=== PATIENT | male | born 1970 | race Caucasian/White ===

== ENCOUNTER 2023-02-05 14:58 | Inpatient (IN) | payer OTHER ==
[~2023-02-05] VITALS: Ht 177.8 cm; Wt 100.7 kg
[~2023-02-05 14:58] MED LIST: PIPERACILLIN /TAZOBACTAM 3.375 G in IV D5W 50 ML IV SCH
[2023-02-05] MEDS ORDERED: IV NS 0.9% 1,000 ML BAG IV ONE (15:30)
[2023-02-05 15:52] LABS: BASOPHILS # (AUTO) 0.1 K/uL (0.0-0.2); BASOPHILS % (AUTO) 0.3 % (0.0-2.0); EOSINOPHILS # (AUTO) 0.1 K/uL (0.0-0.7); EOSINOPHILS % (AUTO) 0.8 % (0.0-6.0); HEMATOCRIT 36 % (39-51); HEMOGLOBIN 11.7 g/dL (13.5-17.5); LYMPHOCYTES # (AUTO) 1.4 K/uL (0.8-4.8); LYMPHOCYTES % (AUTO) 7.8 % (20.0-44.0); MEAN CORPUSCULAR HEMOGLOBIN 27 PG (26.0-33.0); MEAN CORPUSCULAR HGB CONC 32 g/dl (31.0-36.0); MEAN CORPUSCULAR VOLUME 83 fL (80-96); MONOCYTES # (AUTO) 0.8 K/uL (0.1-1.30); MONOCYTES % (AUTO) 4.4 % (2.0-12.0); NEUTROPHILS # (AUTO) 15.1 K/uL (1.8-8.9); NEUTROPHILS % (AUTO) 86.7 % (43.0-81.0); PLATELET COUNT (AUTO) 396 K/uL (150-450); RED CELL DISTRIBUTION WIDTH 15.9 % (11.5-15.0); WHITE BLOOD COUNT (AUTO) 17.4 K/uL (4.3-11.0)
[2023-02-05 16:02] LABS: CALCIUM, SERUM 8.9 mg/dL (8.5-10.1); CARBON DIOXIDE 26 mmol/L (21-32); CHLORIDE 110 mmol/L (98-107); CREATININE 0.7 mg/dL (0.6-1.3); GLUCOSE 122 mg/dL (74-106); POTASSIUM 3.8 mmol/L (3.5-5.1); SODIUM SERUM 143 mmol/L (136-145); UREA NITROGEN, BLOOD 24 mg/dL (7-18)
[2023-02-05 16:06] LABS: INR 1.08 (0.91-1.10); PARTIAL THROMBOPLASTIN TIME 29.9 SEC (24.3-34.3); PROTHROMBIN TIME 11.4 SECS (9.2-11.1)
[2023-02-05 16:07] LABS: ALANINE AMINOTRANSFERASE 104 U/L (12-78); ALKALINE PHOSPHATASE 148 U/L (46-116); ASPARTATE AMINOTRANSFERASE 38 U/L (15-37); BILIRUBIN,DIRECT 0.1 mg/dL (0.0-0.2); BILIRUBIN,TOTAL 0.3 mg/dL (0.2-1.0); TOTAL PROTEIN, SERUM 7.8 g/dL (6.4-8.2)
[2023-02-05] MEDS ORDERED: SERT25TA GT (16:13)
[2023-02-05] MEDS ORDERED: IPRA4AER IH ×2 (16:13)
[2023-02-05] MEDS ORDERED: BACL10TA GT (16:13)
[2023-02-05] MEDS ORDERED: ASCO-352 GT (16:13)
[2023-02-05] MEDS ORDERED: RISP0.2515 GT (16:13)
[2023-02-05] MEDS ORDERED: AMLO-213 GT (16:13)
[2023-02-05] MEDS ORDERED: HYDR-4077 GT (16:13)
[2023-02-05] MEDS ORDERED: ALPR1TAB7 GT (16:13)
[2023-02-05] MEDS ORDERED: FAMO20TA8 GT (16:13)
[2023-02-05] MEDS ORDERED: ACET-2605 GT (16:13)
[2023-02-05] MEDS ORDERED: ACET-868 GT (16:13)
[2023-02-05] MEDS ORDERED: LEVE100S GT (16:13)
[2023-02-05] MEDS ORDERED: LACT-209 GT (16:13)
[2023-02-05] MEDS ORDERED: POVI3780 TP (16:13)
[2023-02-05] MEDS ORDERED: CLON0.1T GT (16:13)
[2023-02-05] MEDS ORDERED: DOCU50LI GT (16:13)
[2023-02-05] MEDS ORDERED: ONDA4TAB5 GT (16:13)
[2023-02-05] MEDS ORDERED: CHLO473M5 MM (16:13)
[2023-02-05] MEDS ORDERED: VANCOMYCIN 1 GM in IV D5W 250 ML IV ONE (16:30)
[2023-02-05] MEDS ORDERED: PIPERACILLIN /TAZOBACTAM 3.375 G in IV D5W 50 ML IV ONE (16:30)
[2023-02-05 16:44] LABS: APPEARANCE,URINE CLEAR (CLEAR); BILIRUBIN,URINE NEGATIVE (NEGATIVE); BLOOD, URINE NEGATIVE Ery/uL (NEGATIVE); COLOR,URINE YELLOW (YELLOW); KETONES,URINE NEGATIVE (NEGATIVE); LEUKOCYTE ESTERASE ,URINE NEGATIVE (NEGATIVE); NITRITE, URINE NEGATIVE (NEGATIVE); PH,URINE 5.5 (5.0-8.0); PROTEIN,URINE TRACE mg/dl (NEGATIVE); UGLUCOSE NEGATIVE (NEGATIVE)
[2023-02-05] MEDS ORDERED: VANCOMYCIN 1 GM /D5W 250 ML PB IV ONE (16:45)
[2023-02-05] MEDS ORDERED: PIPERACI/TAZO 3.375GM/D5W 50ML PB IV ONE (16:45)
[2023-02-05 17:12] LABS: ADD URINE CULTURE NO; BACTERIA,URINE Few /HPF (None Seen); RBC,URINE NONE SEEN /HPF (0-2); SQUAMOUS EPITHELIAL CELL,UR None Seen /HPF (None Seen); WBC,URINE NONE SEEN /HPF (0-3)
[2023-02-05 17:13] LABS: MUCUS,URINE Few /LPF (None Seen)
[2023-02-05] MEDS ORDERED: ONDANSETRON HCL/PF 4 MG/2 ML VIAL IVP PRN (17:30)
[2023-02-05] MEDS ORDERED: hydrALAZINE HCL 50 MG TABLET GT PRN (17:30)
[2023-02-05] MEDS ORDERED: ALPRAZOLAM 1 MG TABLET GT PRN (17:30)
[2023-02-05] MEDS ORDERED: ACETAMINOPHEN ES 500 MG TABLET GT PRN (17:30)
[2023-02-05] MEDS ORDERED: ACETAMINOPHEN 650 MG/SUPP.RECT RC PRN (17:30)
[2023-02-05] MEDS ORDERED: MAGNESIUM HYDROXIDE 30 ML UDC GT PRN (17:30)
[2023-02-05] MEDS ORDERED: JEVITY 1.2 CAL 1,000 ML BOTTLE GT SCH (17:30)
[2023-02-05] MEDS ORDERED: Z GUARD REMEDY 4 OZ OINT TP PRN (17:30)
[2023-02-05] MEDS ORDERED: CLONIDINE HCL 0.1 MG TABLET GT PRN (17:30)
[2023-02-05] MEDS ORDERED: IPRATROPIUM NEB FS 0.5 MG/2.5 ML AMPUL.NEB NEB PRN (17:30)
[2023-02-05] MEDS ORDERED: ALBUTEROL FS 2.5 MG/3 ML VIAL.NEB NEB PRN (17:30)
[2023-02-05] MEDS: IV NS 0.9% 1,000 ML IV PRN (21:09)
[2023-02-05] MEDS: PANTOPRAZOLE 40 MG VIAL IV SCH (23:04)
[2023-02-05] MEDS: CHLORHEXIDINE GLUCONATE 15 ML UDC MM SCH (23:04)
[2023-02-05] MEDS: BACLOFEN (10 MG) 10 MG TABLET GT SCH (23:04)
[2023-02-06] VITALS: BP 120/93; TEMP 99.2; O2SAT 93
[2023-02-06] MEDS ORDERED: PIPERACILLIN /TAZOBACTAM 3.375 G in IV D5W 50 ML IV SCH ×2 (01:00→13:00)
[2023-02-06] MEDS ORDERED: PIPERACI/TAZO 3.375GM/D5W 50ML PB IV ONE (01:15)
[2023-02-06] MEDS ORDERED: VANCOMYCIN 1 GM /D5W 250 ML PB IV ONE (04:22)
[2023-02-06] MEDS ORDERED: VANCOMYCIN HCL 0.75 GM in IV D5W 250 ML IV ONE (05:00)
[2023-02-06 06:36] LABS: BASOPHILS % (AUTO) 0.2 % (0.0-2.0); EOSINOPHILS # (AUTO) 0.3 K/uL (0.0-0.7); EOSINOPHILS % (AUTO) 2.4 % (0.0-6.0); HEMATOCRIT 36 % (39-51); HEMOGLOBIN 11.6 g/dL (13.5-17.5); LYMPHOCYTES # (AUTO) 1.2 K/uL (0.8-4.8); LYMPHOCYTES % (AUTO) 9.8 % (20.0-44.0); MEAN CORPUSCULAR HEMOGLOBIN 27 PG (26.0-33.0); MEAN CORPUSCULAR HGB CONC 32 g/dl (31.0-36.0); MEAN CORPUSCULAR VOLUME 83 fL (80-96); MONOCYTES # (AUTO) 0.6 K/uL (0.1-1.30); MONOCYTES % (AUTO) 4.7 % (2.0-12.0); NEUTROPHILS # (AUTO) 10.4 K/uL (1.8-8.9); NEUTROPHILS % (AUTO) 82.9 % (43.0-81.0); PLATELET COUNT (AUTO) 388 K/uL (150-450); RED BLOOD CELL COUNT(AUTO) 4.35 MIL/uL (4.5-6.0); RED CELL DISTRIBUTION WIDTH 15.9 % (11.5-15.0); WHITE BLOOD COUNT (AUTO) 12.5 K/uL (4.3-11.0)
[2023-02-06 06:55] LABS: CALCIUM, SERUM 8.9 mg/dL (8.5-10.1); CREATININE 0.7 mg/dL (0.6-1.3); MAGNESIUM 2.3 mg/dL (1.8-2.4); PHOSPHORUS 3.3 mg/dL (2.5-4.9); POTASSIUM 3.5 mmol/L (3.5-5.1)
[2023-02-06 07:32] LABS: THYROID STIMULATING HORMONE 2.918 uIU/mL (0.358-3.74)
[2023-02-06 08:00] VITALS: BP 123/82; TEMP 99.9; O2SAT 99
[2023-02-06] MEDS: CHLORHEXIDINE GLUCONATE 15 ML UDC MM SCH ×2 (08:49→21:40)
[2023-02-06] MEDS: BACLOFEN (10 MG) 10 MG TABLET GT SCH ×2 (08:49→20:34)
[2023-02-06] MEDS: LEVETIRACETAM SOL (5 ML) 100 MG/ML UDC GT SCH ×2 (08:49→16:28)
[2023-02-06] MEDS: ASCORBIC ACID 500 MG TABLET GT SCH (08:49)
[2023-02-06] MEDS: PANTOPRAZOLE 40 MG VIAL IV SCH (08:49)
[2023-02-06] MEDS: DOCUSATE SODIUM LIQ 100 MG/10 ML UDC GT SCH (08:49)
[2023-02-06] MEDS: AMLODIPINE BESYLATE 10 MG TABLET GT SCH (08:50)
[2023-02-06] MEDS: SERTRALINE HCL 25 MG TABLET GT SCH (08:50)
[2023-02-06] MEDS: risperiDONE 1 MG TABLET GT SCH ×2 (08:50→16:28)
[2023-02-06] MEDS: PIPERACILLIN /TAZOBACTAM 3.375 G in IV D5W 50 ML IV SCH ×2 (11:11→20:18)
[2023-02-06] MEDS ORDERED: JEVITY 1.2 CAL 1,000 ML BOTTLE GT SCH ×2 (11:30)
[2023-02-06 12:00] VITALS: BP 115/81; TEMP 99.3; O2SAT 99
[2023-02-06] MEDS: VANCOMYCIN 0.75 GM in IV D5W 250 ML IV SCH ×2 (13:09→20:19)
[2023-02-06 16:00] VITALS: BP 118/84; TEMP 98.4; O2SAT 100
[2023-02-06 20:00] VITALS: BP 114/89; TEMP 98.9; O2SAT 97
[2023-02-06] MEDS: JEVITY 1.2 CAL 1,000 ML BOTTLE GT PRN (20:31)
[2023-02-07] VITALS: BP 145/111; TEMP 98.5; O2SAT 100
[2023-02-07] MEDS: IV NS 0.9% 1,000 ML IV PRN ×2 (02:35→22:52)
[2023-02-07] MEDS: PIPERACILLIN /TAZOBACTAM 3.375 G in IV D5W 50 ML IV SCH ×3 (04:14→20:56)
[2023-02-07] MEDS: VANCOMYCIN 0.75 GM in IV D5W 250 ML IV SCH ×3 (05:18→21:57)
[2023-02-07 07:01] LABS: BASOPHILS % (AUTO) 0.2 % (0.0-2.0); EOSINOPHILS # (AUTO) 0.5 K/uL (0.0-0.7); EOSINOPHILS % (AUTO) 4.3 % (0.0-6.0); HEMATOCRIT 36 % (39-51); HEMOGLOBIN 11.3 g/dL (13.5-17.5); LYMPHOCYTES # (AUTO) 1.3 K/uL (0.8-4.8); LYMPHOCYTES % (AUTO) 11.1 % (20.0-44.0); MEAN CORPUSCULAR HEMOGLOBIN 26 PG (26.0-33.0); MEAN CORPUSCULAR HGB CONC 31 g/dl (31.0-36.0); MEAN CORPUSCULAR VOLUME 84 fL (80-96); MONOCYTES # (AUTO) 0.7 K/uL (0.1-1.30); MONOCYTES % (AUTO) 5.9 % (2.0-12.0); NEUTROPHILS # (AUTO) 9.2 K/uL (1.8-8.9); NEUTROPHILS % (AUTO) 78.5 % (43.0-81.0); PLATELET COUNT (AUTO) 403 K/uL (150-450); RED BLOOD CELL COUNT(AUTO) 4.31 MIL/uL (4.5-6.0); WHITE BLOOD COUNT (AUTO) 11.7 K/uL (4.3-11.0)
[2023-02-07 07:18] LABS: CALCIUM, SERUM 8.5 mg/dL (8.5-10.1); CREATININE 0.7 mg/dL (0.6-1.3); POTASSIUM 3.6 mmol/L (3.5-5.1)
[2023-02-07 07:30] VITALS: BP 124/90; TEMP 98.8; O2SAT 100
[2023-02-07] MEDS: CHLORHEXIDINE GLUCONATE 15 ML UDC MM SCH ×2 (09:00→21:04)
[2023-02-07] MEDS: LEVETIRACETAM SOL (5 ML) 100 MG/ML UDC GT SCH ×2 (09:00→16:16)
[2023-02-07] MEDS: BACLOFEN (10 MG) 10 MG TABLET GT SCH ×2 (09:00→21:03)
[2023-02-07] MEDS: DOCUSATE SODIUM LIQ 100 MG/10 ML UDC GT SCH (09:00)
[2023-02-07] MEDS: AMLODIPINE BESYLATE 10 MG TABLET GT SCH (09:01)
[2023-02-07] MEDS: risperiDONE 1 MG TABLET GT SCH ×2 (09:01→16:16)
[2023-02-07] MEDS: PANTOPRAZOLE 40 MG/PACK PACK NG SCH (09:01)
[2023-02-07] MEDS: ASCORBIC ACID 500 MG TABLET GT SCH (09:01)
[2023-02-07] MEDS: SERTRALINE HCL 25 MG TABLET GT SCH (09:01)
[2023-02-07] MEDS: MUPIROCIN OINT 2% 22 GM TUBE TP SCH (13:34)
[2023-02-07 16:00] VITALS: BP 130/90; TEMP 100.6; O2SAT 97
[2023-02-07] MEDS: ACETAMINOPHEN 325 MG TABLET MC PRN (16:16)
[2023-02-07] MEDS: JEVITY 1.2 CAL 1,000 ML BOTTLE GT PRN (16:45)
[2023-02-07 20:37] VITALS: TEMP 98.4
[2023-02-07 20:38] VITALS: BP 117/86; O2SAT 98
[2023-02-08 00:11] VITALS: BP 113/86; TEMP 98.2; O2SAT 97
[2023-02-08] MEDS: PIPERACILLIN /TAZOBACTAM 3.375 G in IV D5W 50 ML IV SCH ×3 (04:00→20:39)
[2023-02-08] MEDS: VANCOMYCIN 0.75 GM in IV D5W 250 ML IV SCH ×3 (04:31→21:46)
[2023-02-08] MEDS: ACETAMINOPHEN 325 MG TABLET MC PRN (04:51)
[2023-02-08 05:27] VITALS: BP 103/76; TEMP 97.9; O2SAT 97
[2023-02-08 07:30] VITALS: BP 125/92; TEMP 99.9; O2SAT 99
[2023-02-08 07:33] LABS: BASOPHILS % (AUTO) 0.1 % (0.0-2.0); EOSINOPHILS # (AUTO) 0.4 K/uL (0.0-0.7); EOSINOPHILS % (AUTO) 3.3 % (0.0-6.0); HEMATOCRIT 36 % (39-51); HEMOGLOBIN 11.6 g/dL (13.5-17.5); LYMPHOCYTES # (AUTO) 1.1 K/uL (0.8-4.8); LYMPHOCYTES % (AUTO) 9.3 % (20.0-44.0); MEAN CORPUSCULAR HEMOGLOBIN 27 PG (26.0-33.0); MEAN CORPUSCULAR HGB CONC 32 g/dl (31.0-36.0); MEAN CORPUSCULAR VOLUME 83 fL (80-96); MONOCYTES # (AUTO) 0.6 K/uL (0.1-1.30); MONOCYTES % (AUTO) 4.6 % (2.0-12.0); NEUTROPHILS % (AUTO) 82.7 % (43.0-81.0); PLATELET COUNT (AUTO) 438 K/uL (150-450); RED BLOOD CELL COUNT(AUTO) 4.35 MIL/uL (4.5-6.0); WHITE BLOOD COUNT (AUTO) 12.1 K/uL (4.3-11.0)
[2023-02-08 07:58] LABS: CREATININE 0.7 mg/dL (0.6-1.3); POTASSIUM 3.4 mmol/L (3.5-5.1)
[2023-02-08] MEDS: risperiDONE 1 MG TABLET GT SCH ×2 (09:56→16:51)
[2023-02-08] MEDS: AMLODIPINE BESYLATE 10 MG TABLET GT SCH (09:56)
[2023-02-08] MEDS: PANTOPRAZOLE 40 MG/PACK PACK NG SCH (09:56)
[2023-02-08] MEDS: SERTRALINE HCL 25 MG TABLET GT SCH (09:56)
[2023-02-08] MEDS: BACLOFEN (10 MG) 10 MG TABLET GT SCH ×2 (09:56→21:47)
[2023-02-08] MEDS: DOCUSATE SODIUM LIQ 100 MG/10 ML UDC GT SCH (09:56)
[2023-02-08] MEDS: LEVETIRACETAM SOL (5 ML) 100 MG/ML UDC GT SCH ×2 (09:56→16:51)
[2023-02-08] MEDS: ASCORBIC ACID 500 MG TABLET GT SCH (09:56)
[2023-02-08] MEDS: MUPIROCIN OINT 2% 22 GM TUBE TP SCH (09:57)
[2023-02-08] MEDS: CHLORHEXIDINE GLUCONATE 15 ML UDC MM SCH ×2 (09:58→21:47)
[2023-02-08] MEDS ORDERED: POTASSIUM CHLORIDE 20 MEQ TAB.PRT.SR PO ONE (10:00)
[2023-02-08 10:15] LABS: CALCIUM, SERUM 8.9 mg/dL (8.5-10.1)
[2023-02-08] MEDS: JEVITY 1.2 CAL 1,000 ML BOTTLE GT PRN (12:57)
[2023-02-08 16:00] VITALS: BP 129/95; TEMP 99.3; O2SAT 97
[2023-02-08] MEDS: IV NS 0.9% 1,000 ML IV PRN (18:16)
[2023-02-08 20:00] VITALS: BP 133/110; TEMP 99.3; O2SAT 99
[2023-02-09] MEDS: PIPERACILLIN /TAZOBACTAM 3.375 G in IV D5W 50 ML IV SCH (04:20)
[2023-02-09] MEDS: VANCOMYCIN 0.75 GM in IV D5W 250 ML IV SCH ×3 (05:00→20:49)
[2023-02-09] MEDS: JEVITY 1.2 CAL 1,000 ML BOTTLE GT PRN (06:41)
[2023-02-09 07:11] LABS: BASOPHILS % (AUTO) 0.2 % (0.0-2.0); EOSINOPHILS # (AUTO) 0.2 K/uL (0.0-0.7); EOSINOPHILS % (AUTO) 1.2 % (0.0-6.0); HEMATOCRIT 37 % (39-51); HEMOGLOBIN 11.6 g/dL (13.5-17.5); LYMPHOCYTES # (AUTO) 1.3 K/uL (0.8-4.8); LYMPHOCYTES % (AUTO) 9.3 % (20.0-44.0); MEAN CORPUSCULAR HEMOGLOBIN 26 PG (26.0-33.0); MEAN CORPUSCULAR HGB CONC 31 g/dl (31.0-36.0); MEAN CORPUSCULAR VOLUME 84 fL (80-96); MONOCYTES # (AUTO) 0.8 K/uL (0.1-1.30); MONOCYTES % (AUTO) 5.8 % (2.0-12.0); NEUTROPHILS # (AUTO) 11.4 K/uL (1.8-8.9); NEUTROPHILS % (AUTO) 83.5 % (43.0-81.0); PLATELET COUNT (AUTO) 480 K/uL (150-450); RED BLOOD CELL COUNT(AUTO) 4.39 MIL/uL (4.5-6.0); RED CELL DISTRIBUTION WIDTH 16.2 % (11.5-15.0); WHITE BLOOD COUNT (AUTO) 13.7 K/uL (4.3-11.0)
[2023-02-09 07:16] LABS: CALCIUM, SERUM 9.1 mg/dL (8.5-10.1); CREATININE 0.8 mg/dL (0.6-1.3); POTASSIUM 3.8 mmol/L (3.5-5.1)
[2023-02-09] MEDS: ASCORBIC ACID 500 MG TABLET GT SCH (08:37)
[2023-02-09] MEDS: LEVETIRACETAM SOL (5 ML) 100 MG/ML UDC GT SCH ×2 (08:37→16:39)
[2023-02-09] MEDS: CHLORHEXIDINE GLUCONATE 15 ML UDC MM SCH ×2 (08:37→20:40)
[2023-02-09] MEDS: BACLOFEN (10 MG) 10 MG TABLET GT SCH ×2 (08:37→20:40)
[2023-02-09] MEDS: AMLODIPINE BESYLATE 10 MG TABLET GT SCH (08:38)
[2023-02-09] MEDS: DOCUSATE SODIUM LIQ 100 MG/10 ML UDC GT SCH (08:38)
[2023-02-09] MEDS: PANTOPRAZOLE 40 MG/PACK PACK NG SCH (08:38)
[2023-02-09] MEDS: risperiDONE 1 MG TABLET GT SCH ×2 (08:48→16:39)
[2023-02-09] MEDS: SERTRALINE HCL 25 MG TABLET GT SCH (08:48)
[2023-02-09 09:03] VITALS: BP 131/99; TEMP 98.8; O2SAT 99
[2023-02-09] MEDS: MUPIROCIN OINT 2% 22 GM TUBE TP SCH (09:11)
[2023-02-09] MEDS: PIPERACILLIN /TAZOBACTAM 3.375 G in IV D5W 100 ML IV SCH ×2 (13:18→22:01)
[2023-02-09 13:38] VITALS: BP 122/82; TEMP 100.8; O2SAT 100
[2023-02-09 16:44] VITALS: BP 98/87; TEMP 99.3; O2SAT 98
[2023-02-09 20:00] VITALS: BP 123/98; TEMP 98.3; O2SAT 98
[2023-02-09] MEDS: IV NS 0.9% 1,000 ML IV PRN (20:50)
[2023-02-10] VITALS: BP 129/83; TEMP 99.4; O2SAT 99
[2023-02-10] MEDS: JEVITY 1.2 CAL 1,000 ML BOTTLE GT PRN ×2 (01:37→16:51)
[2023-02-10] MEDS: VANCOMYCIN 0.75 GM in IV D5W 250 ML IV SCH (04:15)
[2023-02-10] MEDS: PIPERACILLIN /TAZOBACTAM 3.375 G in IV D5W 100 ML IV SCH ×3 (05:16→20:47)
[2023-02-10 07:00] VITALS: BP 117/83; TEMP 100.1; O2SAT 98
[2023-02-10 07:19] LABS: BASOPHILS % (AUTO) 0.1 % (0.0-2.0); EOSINOPHILS # (AUTO) 0.3 K/uL (0.0-0.7); EOSINOPHILS % (AUTO) 1.8 % (0.0-6.0); HEMATOCRIT 35 % (39-51); HEMOGLOBIN 11.1 g/dL (13.5-17.5); LYMPHOCYTES # (AUTO) 1.6 K/uL (0.8-4.8); LYMPHOCYTES % (AUTO) 9.8 % (20.0-44.0); MEAN CORPUSCULAR HEMOGLOBIN 27 PG (26.0-33.0); MEAN CORPUSCULAR HGB CONC 32 g/dl (31.0-36.0); MEAN CORPUSCULAR VOLUME 84 fL (80-96); MONOCYTES % (AUTO) 6.4 % (2.0-12.0); NEUTROPHILS # (AUTO) 13.2 K/uL (1.8-8.9); NEUTROPHILS % (AUTO) 81.9 % (43.0-81.0); PLATELET COUNT (AUTO) 435 K/uL (150-450); RED BLOOD CELL COUNT(AUTO) 4.19 MIL/uL (4.5-6.0); RED CELL DISTRIBUTION WIDTH 16.1 % (11.5-15.0); WHITE BLOOD COUNT (AUTO) 16.2 K/uL (4.3-11.0)
[2023-02-10 07:33] LABS: CALCIUM, SERUM 8.8 mg/dL (8.5-10.1); CREATININE 0.8 mg/dL (0.6-1.3); POTASSIUM 3.6 mmol/L (3.5-5.1)
[2023-02-10] MEDS: ASCORBIC ACID 500 MG TABLET GT SCH (08:43)
[2023-02-10] MEDS: BACLOFEN (10 MG) 10 MG TABLET GT SCH ×2 (08:43→21:15)
[2023-02-10] MEDS: risperiDONE 1 MG TABLET GT SCH ×2 (08:43→16:51)
[2023-02-10] MEDS: AMLODIPINE BESYLATE 10 MG TABLET GT SCH (08:44)
[2023-02-10] MEDS: PANTOPRAZOLE 40 MG/PACK PACK NG SCH (08:44)
[2023-02-10] MEDS: LEVETIRACETAM SOL (5 ML) 100 MG/ML UDC GT SCH ×2 (08:45→16:51)
[2023-02-10] MEDS: DOCUSATE SODIUM LIQ 100 MG/10 ML UDC GT SCH (08:45)
[2023-02-10] MEDS: SERTRALINE HCL 25 MG TABLET GT SCH (08:45)
[2023-02-10] MEDS: CHLORHEXIDINE GLUCONATE 15 ML UDC MM SCH ×2 (08:45→21:14)
[2023-02-10] MEDS: MUPIROCIN OINT 2% 22 GM TUBE TP SCH (08:46)
[2023-02-10 12:00] VITALS: BP 104/76; TEMP 99.3; O2SAT 98
[2023-02-10] MEDS: VANCOMYCIN 1 GM in IV D5W 250 ML IV SCH ×2 (12:29→20:47)
[2023-02-10 16:00] VITALS: BP 115/91; TEMP 99.4; O2SAT 99
[2023-02-10 20:00] VITALS: BP 128/86; TEMP 98.4; O2SAT 100
[2023-02-11 00:06] VITALS: BP 121/88; TEMP 98.4; O2SAT 100
[2023-02-11] MEDS: PIPERACILLIN /TAZOBACTAM 3.375 G in IV D5W 100 ML IV SCH ×3 (04:08→22:18)
[2023-02-11] MEDS: VANCOMYCIN 1 GM in IV D5W 250 ML IV SCH ×4 (04:08→21:14)
[2023-02-11 04:17] VITALS: BP 117/78; TEMP 95.2; O2SAT 100
[2023-02-11] MEDS: IV NS 0.9% 1,000 ML IV PRN (04:45)
[2023-02-11 07:00] VITALS: BP 103/71; TEMP 97.9; O2SAT 100
[2023-02-11 08:01] LABS: BASOPHILS % (AUTO) 0.2 % (0.0-2.0); EOSINOPHILS # (AUTO) 0.5 K/uL (0.0-0.7); EOSINOPHILS % (AUTO) 3.6 % (0.0-6.0); HEMATOCRIT 33 % (39-51); HEMOGLOBIN 10.5 g/dL (13.5-17.5); LYMPHOCYTES # (AUTO) 1.8 K/uL (0.8-4.8); LYMPHOCYTES % (AUTO) 13.7 % (20.0-44.0); MEAN CORPUSCULAR HEMOGLOBIN 26 PG (26.0-33.0); MEAN CORPUSCULAR HGB CONC 32 g/dl (31.0-36.0); MEAN CORPUSCULAR VOLUME 82 fL (80-96); MONOCYTES # (AUTO) 0.8 K/uL (0.1-1.30); MONOCYTES % (AUTO) 6.3 % (2.0-12.0); NEUTROPHILS # (AUTO) 10.1 K/uL (1.8-8.9); NEUTROPHILS % (AUTO) 76.2 % (43.0-81.0); PLATELET COUNT (AUTO) 457 K/uL (150-450); RED BLOOD CELL COUNT(AUTO) 3.97 MIL/uL (4.5-6.0); RED CELL DISTRIBUTION WIDTH 15.9 % (11.5-15.0); WHITE BLOOD COUNT (AUTO) 13.2 K/uL (4.3-11.0)
[2023-02-11 08:41] LABS: CALCIUM, SERUM 8.7 mg/dL (8.5-10.1); CREATININE 0.7 mg/dL (0.6-1.3); POTASSIUM 3.5 mmol/L (3.5-5.1)
[2023-02-11] MEDS: BACLOFEN (10 MG) 10 MG TABLET GT SCH ×2 (08:48→21:14)
[2023-02-11] MEDS: LEVETIRACETAM SOL (5 ML) 100 MG/ML UDC GT SCH ×2 (08:48→16:05)
[2023-02-11] MEDS: ASCORBIC ACID 500 MG TABLET GT SCH (08:48)
[2023-02-11] MEDS: DOCUSATE SODIUM LIQ 100 MG/10 ML UDC GT SCH (08:48)
[2023-02-11] MEDS: CHLORHEXIDINE GLUCONATE 15 ML UDC MM SCH ×2 (08:48→21:14)
[2023-02-11] MEDS: SERTRALINE HCL 25 MG TABLET GT SCH (08:48)
[2023-02-11] MEDS: risperiDONE 1 MG TABLET GT SCH ×2 (08:48→16:05)
[2023-02-11] MEDS: PANTOPRAZOLE 40 MG/PACK PACK NG SCH (08:49)
[2023-02-11] MEDS: AMLODIPINE BESYLATE 10 MG TABLET GT SCH (09:00)
[2023-02-11] MEDS: MUPIROCIN OINT 2% 22 GM TUBE TP SCH (09:03)
[2023-02-11 11:30] VITALS: BP 103/81; TEMP 98.4; O2SAT 99
[2023-02-11 16:00] VITALS: BP 111/83; TEMP 97.3; O2SAT 99
[2023-02-11] MEDS: JEVITY 1.2 CAL 1,000 ML BOTTLE GT PRN (18:10)
[2023-02-11 20:00] VITALS: BP 105/81; TEMP 97.9; O2SAT 100
[2023-02-12] VITALS: BP 113/83; TEMP 97.8; O2SAT 97
[2023-02-12] MEDS: VANCOMYCIN 1 GM in IV D5W 250 ML IV SCH (04:08)
[2023-02-12] MEDS: PIPERACILLIN /TAZOBACTAM 3.375 G in IV D5W 100 ML IV SCH ×2 (04:17→13:34)
[2023-02-12 04:51] VITALS: BP 111/72; TEMP 98.4; O2SAT 100
[2023-02-12 07:00] VITALS: BP 104/77; TEMP 99; O2SAT 100
[2023-02-12 07:39] LABS: BASOPHILS % (AUTO) 0.2 % (0.0-2.0); EOSINOPHILS # (AUTO) 0.5 K/uL (0.0-0.7); EOSINOPHILS % (AUTO) 4.9 % (0.0-6.0); HEMATOCRIT 32 % (39-51); HEMOGLOBIN 10.1 g/dL (13.5-17.5); LYMPHOCYTES # (AUTO) 1.6 K/uL (0.8-4.8); LYMPHOCYTES % (AUTO) 16.3 % (20.0-44.0); MEAN CORPUSCULAR HEMOGLOBIN 26 PG (26.0-33.0); MEAN CORPUSCULAR HGB CONC 32 g/dl (31.0-36.0); MEAN CORPUSCULAR VOLUME 82 fL (80-96); MONOCYTES # (AUTO) 0.6 K/uL (0.1-1.30); MONOCYTES % (AUTO) 6.3 % (2.0-12.0); NEUTROPHILS # (AUTO) 7.2 K/uL (1.8-8.9); NEUTROPHILS % (AUTO) 72.3 % (43.0-81.0); PLATELET COUNT (AUTO) 499 K/uL (150-450); RED BLOOD CELL COUNT(AUTO) 3.85 MIL/uL (4.5-6.0); RED CELL DISTRIBUTION WIDTH 15.6 % (11.5-15.0); WHITE BLOOD COUNT (AUTO) 9.9 K/uL (4.3-11.0)
[2023-02-12 08:19] LABS: CALCIUM, SERUM 9.2 mg/dL (8.5-10.1); CREATININE 0.8 mg/dL (0.6-1.3); MAGNESIUM 2.3 mg/dL (1.8-2.4); PHOSPHORUS 4.7 mg/dL (2.5-4.9); POTASSIUM 3.5 mmol/L (3.5-5.1)
[2023-02-12] MEDS: BACLOFEN (10 MG) 10 MG TABLET GT SCH (08:40)
[2023-02-12] MEDS: SERTRALINE HCL 25 MG TABLET GT SCH (08:41)
[2023-02-12] MEDS: AMLODIPINE BESYLATE 10 MG TABLET GT SCH (08:41)
[2023-02-12] MEDS: CHLORHEXIDINE GLUCONATE 15 ML UDC MM SCH (08:42)
[2023-02-12] MEDS: ASCORBIC ACID 500 MG TABLET GT SCH (08:42)
[2023-02-12] MEDS: LEVETIRACETAM SOL (5 ML) 100 MG/ML UDC GT SCH (08:42)
[2023-02-12] MEDS: DOCUSATE SODIUM LIQ 100 MG/10 ML UDC GT SCH (08:42)
[2023-02-12] MEDS: risperiDONE 1 MG TABLET GT SCH (08:42)
[2023-02-12] MEDS: PANTOPRAZOLE 40 MG/PACK PACK NG SCH (08:42)
[2023-02-12] MEDS ORDERED: VANCOMYCIN 1 GM in IV D5W 250 ML IV SCH (09:00)
[2023-02-12] MEDS ORDERED: PIPE3.379 IV (10:18)
[2023-02-12 12:00] VITALS: BP 108/76; TEMP 98.8; O2SAT 100
[2023-02-12] MEDS: MUPIROCIN OINT 2% 22 GM TUBE TP SCH (12:10)
== END 2023-02-12 16:00 | DRG 720 ==
LOC: ER 15:22 → TELE 20:06
PROVIDERS: ADMIT Nurse Practitioner Acute Care; ATTEND Internal Medicine
PROC: 5A1955Z Respiratory Ventilation, Greater than 96 Consecutive Hours (ICD-10-PCS; principal; 2023-02-05)
DX: A41.9 Sepsis, unspecified organism (principal); J96.20 Acute and chronic respiratory failure, unspecified whether with hypoxia or hypercapnia; G93.41 Metabolic encephalopathy; E44.0 Moderate protein-calorie malnutrition; L89.619 Pressure ulcer of right heel, unspecified stage; D68.69 Other thrombophilia; E88.09 Other disorders of plasma-protein metabolism, not elsewhere classified; L89.629 Pressure ulcer of left heel, unspecified stage; Z93.0 Tracheostomy status; Z99.11 Dependence on respirator [ventilator] status; Z74.09 Other reduced mobility; G40.909 Epilepsy, unspecified, not intractable, without status epilepticus; I10 Essential (primary) hypertension; K21.9 Gastro-esophageal reflux disease without esophagitis; R13.10 Dysphagia, unspecified; Z74.01 Bed confinement status; R74.01 Elevation of levels of liver transaminase levels; F41.9 Anxiety disorder, unspecified; F32.A Depression, unspecified; S90.421A Blister (nonthermal), right great toe, initial encounter; X58.XXXA Exposure to other specified factors, initial encounter; Y93.9 Activity, unspecified; Y92.129 Unspecified place in nursing home as the place of occurrence of the external cause; S91.101A Unspecified open wound of right great toe without damage to nail, initial encounter; M24.574 Contracture, right foot; M24.575 Contracture, left foot; Z68.31 Body mass index [BMI] 31.0-31.9, adult; B34.9 Viral infection, unspecified; Z20.822 Contact with and (suspected) exposure to COVID-19; Z93.1 Gastrostomy status
CPT/HCPCS: 31720; 36415; 71045-TC; 80048-TC; 80061-TC; 80076-TC; 80202-TC; 81001; 83605-TC; 83735-TC; 84100-TC; 84443-TC; 84484-TC; 85025-TC; 85730-TC; 87040-TC; 87081-TC; 87086-TC; 93970-TC; 94002-TC; 94003-TC; 94799-TC; A4223; A4623; A6253; A6403; A7526; C9113; C9803; G0378; J1953; J2543; J3370; J7030; J7060